=== PATIENT | male | born 1955 | race Caucasian/White ===

== ENCOUNTER 2016-03-25 17:36 | Emergency (ER) | payer BC ==
[~2016-03-25] VITALS: Ht 172.7 cm; Wt 76.0 kg
[~2016-03-25 17:36] MED LIST: AMLO5 PO; ASPI325T PO; HYDR-3583 PO; LIPI40TA PO; MULT1TAB84 PO; PRIN20TA2 PO; TOPR100T PO
[2016-03-25 17:53] VITALS: BP 156/113; PULSE 82; RESP 16; TEMP 98; O2SAT 98
--- NOTE | 2016-03-25 18:34 | PD ---
HPI Chief Complaint: GI Complaint Time Seen by Provider: 18:18 Travel History International Travel<30 days: No Contact w/Intl Traveler<30days: No Traveled to known affect area: No History of Present Illness HPI This is a 60 year old male who has a history of chronic opiate use due to back pain who presents with a sensation of needing to defecate with severe pain, unable to defecate. He says it is intermittent, comes and goes in waves, and is severe at its maximum. Pt. reports it is doubling him over in pain. He finds walking around makes it better and he has been trying to take oxycodone for it but that is not helping. Pt. had a bowel movement at 3 AM and around 5 AM his symptoms started. Pt. does have a history of bowel resection due to diverticulitis. PFSH Past Medical History Hx Anticoagulant Therapy: Yes (asa 325mg) Arthritis: No Asthma: No Autoimmune Disease: No Blood Disorders: No Anxiety: No Depression: No Heart Rhythm Problems: No Cancer: No Cardiac Catheterization: Yes Cardiovascular Problems: Yes (htn on meds, [place] -5 vessel bypass) High Cholesterol: Yes Chemotherapy: No Chest Pain: No Congestive Heart Failure: No COPD: No Cerebrovascular Accident: No Coronary Artery Disease: Yes Diabetes: No Diminished Hearing: No Diverticulitis: Yes Endocrine: No Gastrointestinal Disorders: Yes GERD: Yes (HX OF) Glaucoma: No Genitourinary: Yes Headaches: No Hepatitis: No Hiatal Hernia: Yes (HX OF) Hypertension: Yes Kidney Stones: Yes Musculoskeletal: No Neurologic: No Psychiatric: No Reproductive: No Respiratory: No Myocardial Infarction: Yes Radiation Therapy: No Renal Failure: No Seizures: No Sickle Cell Disease: No Sleep Apnea: No Thyroid Disease: No Ulcer: No Past Surgical History Abdominal Surgery: Yes (BOWEL RESECTION) AICD: No Cardiac Surgery: Yes (QUAD BYPASS) Coronary Artery Bypass Graft: Yes Ear Surgery: No Endocrine Surgery: No Eye Surgery: No Genitourinary Surgery: Yes (LITHOTRIPSY) Gynecologic Surgery: No Neurologic Surgery: No Oral Surgery: No Pacemaker: No Thoracic Surgery: No Other Surgery: Yes (BYPASS DECEMBER 2003) Social History Alcohol Use: Yes (3-4 DRINKS DAILY) Tobacco Use: No Substance Use: No Allergies-Medications (Allergen,Severity, Reaction): Coded Allergies: Sulfa (Verified Allergy, Severe, 03/25/16) Reported Meds & Prescriptions Reported Meds & Active Scripts Active Reported Hydrocodone-Acetaminophen 10-325 mg Tab 1 Tab PO Q4H PRN Norvasc (Amlodipine Besylate) 5 Mg Tab 5 Mg PO DAILY Aspirin 325 Mg Tab 325 Mg PO DAILY Lipitor (Atorvastatin Calcium) 40 Mg Tab 80 Mg PO HS Prinivil (Lisinopril) 20 Mg Tab 20 Mg PO HS PRN Toprol XL (Metoprolol Succinate) 100 Mg Tab 100 Mg PO DAILY Multivitamin Adults (Multiple Vitamins W/ Minerals) 1 Tab 1 Tab PO DAILY Review of Systems Except as stated in HPI: all other systems reviewed are Neg Physical Exam Narrative GENERAL:Well appearing, no acute distress SKIN: Warm and dry. HEAD: Atraumatic. Normocephalic. EYES: Pupils equal and round. No injection or drainage. ENT: Moist mucous membranes NECK: Trachea midline. CARDIOVASCULAR: Regular rate and rhythm. No murmur appreciated. RESPIRATORY: Clear to auscultation. Breath sounds equal bilaterally. GASTROINTESTINAL: Abdomen soft, tender to palpation in the lower abdomen with no rebound or guarding. No tenderness to palpation on rectal exam, no prostate tenderness, no obvious abscess or impaction MUSCULOSKELETAL: No obvious deformities. NEUROLOGICAL: Awake and alert. No obvious cranial nerve deficits. Moving all extremities. PSYCHIATRIC: Appropriate mood and affect; insight and judgment normal. Data Data Last Documented VS Vital Signs Date Time Temp Pulse Resp B/P Pulse Ox O2 Delivery O2 Flow Rate FiO2 03/25/16 18:21 18 03/25/16 17:53 98.0 82 156/113 98 Orders Complete Blood Count With Diff (03/25/16 18:41) Comprehensive Metabolic Panel (03/25/16 18:41) Urinalysis - C+S If Indicated (03/25/16 18:41) Ct Abd/Pel W Iv Contrast(Rout) (03/25/16 18:41) Iv Access Insert/Monitor (03/25/16 18:41) Ecg Monitoring (03/25/16 18:41) Oximetry (03/25/16 18:41) Sodium Chloride 0.9% Flush (Ns Flush) (03/25/16 18:45) MDM Medical Decision Making Medical Screen Exam Complete: Yes Emergency Medical Condition: Yes Interpretation(s) Afebrile, no tachycardia, hypertension Differential Diagnosis Fecal impaction, perirectal abscess, prostatitis, colitis, diverticulitis Narrative Course This is a 60-year-old male who presents to the emergency department with lower abdominal discomfort and rectal pain. Patient has a long history of chronic opiate use. Rectal exam was benign with no evidence of fecal impaction or abscess and no sign of prostatitis. He was placed on a monitor and an IV was established. Labs will be obtained and a CT abdomen and pelvis will be obtained to rule out obstruction. Case was signed out to Dr. Luciano. Agustina Shultz MD Mar 25, 2016 18:34
[2016-03-25] MEDS ORDERED: SODIUM CHLORIDE 0.9% FLUSH 5 ML FLUSH IVF PRN (18:45)
[2016-03-25 19:04] LABS: BASOPHIL # 0.3 TH/MM3 (0-0.2); BASOPHIL % 3.2 % (0.0-2.0); BLOOD, URINE SMALL (NEG); EOSINOPHIL % 0.1 % (0.0-4.0); GLUCOSE,URINE NEG (NEG); HEMATOCRIT 44.2 % (39.0-51.0); HEMO FLAGS DIFF FINAL; KETONE, URINE TRACE mg/dL (NEG); LYMPH % 7.7 % (9.0-44.0); LYMPHOCYTE # 0.8 TH/MM3 (1.0-4.8); MEAN CELL VOLUME 100.6 FL (80.0-100.0); MEAN CORPUSCULAR HEMOGLOBIN 34.7 PG (27.0-34.0); MEAN CORPUSCULAR HGB CONC 34.5 % (32.0-36.0); MONO % 17.9 % (0.0-8.0); NEUT % 71.1 % (16.0-70.0); NITRITE,URINE NEG (NEG); PLATELET COUNT 258 TH/MM3 (150-450); RED BLOOD COUNT 4.39 MIL/MM3 (4.50-5.90); RED CELL DISTRIBUTION WIDTH 12.3 % (11.6-17.2); WHITE BLOOD COUNT 9.8 TH/MM3 (4.0-11.0)
[2016-03-25 19:14] LABS: METHOD OF COLLECTION VOIDED; URINE COLOR YELLOW (YELLW/STRAW)
[2016-03-25 19:15] LABS: COMMENT (UR) CULT NOT INDICATED; CULTURE IF INDICATED CULT NOT INDICATED; MUCUS URINE FEW /lpf (OCC); RBC, URINE 0-3 /hpf (0-3); SQUAMOUS EPITHELIAL CELL URINE 0-2 /hpf (0-5)
[2016-03-25 19:16] LABS: CHLORIDE 101 MEQ/L (98-107); POTASSIUM 3.6 MEQ/L (3.5-5.1); SODIUM (NA) 139 MEQ/L (136-145)
[2016-03-25 19:19] LABS: ANION GAP 8 MEQ/L (5-15); BICARBONATE 29.6 MEQ/L (21.0-32.0)
[2016-03-25 19:20] LABS: BLOOD UREA NITROGEN 18 MG/DL (7-18)
[2016-03-25 19:22] LABS: ALT (GPT) 36 U/L (12-78); AST (GOT) 29 U/L (15-37)
[2016-03-25 19:23] LABS: GLOMERULAR FILTRATION RATE 62 ML/MIN (>89)
[2016-03-25 19:24] LABS: TOTAL BILIRUBIN ADULT 0.7 MG/DL (0.2-1.0)
[2016-03-25 19:25] LABS: ALKALINE PHOSPHATASE 56 U/L (45-117)
[2016-03-25] MEDS ORDERED: IOHEXOL 350 MG/ML 10 ML VIAL (for RAD DIAG) IV ONE (20:16)
--- NOTE | 2016-03-25 20:32 | RADHPO ---
EXAM DATE/TIME: 03/25/2016 20:09 [facility] COMPARISON: No previous studies available for comparison. INDICATIONS : Rectal pain with sensation of needing bowel movement. IV CONTRAST: 100 cc Omnipaque 350 (iohexol) IV ORAL CONTRAST: No oral contrast ingested. RADIATION DOSE: 11.83 CTDIvol (mGy) MEDICAL HISTORY : Gastroesophageal reflux disease. Diverticulitis. Hernia, hiatal.Hypertention. Renal calculi. SURGICAL HISTORY : Bowel resection. ENCOUNTER: Initial ACUITY: 1 day PAIN SCALE: 8/10 LOCATION: rectal TECHNIQUE: Volumetric scanning of the abdomen and pelvis was performed. Using automated exposure control and ad justment of the mA and/or kV according to patient size, radiation dose was kept as low as reasonably achievable to obtain optimal diagnostic quality images. FINDINGS: LOWER LUNGS: The visualized lower lungs are clear. LIVER: Decreased attenuation without lesion. There is no dilation of the biliary tree. Small calcified gall stones. SPLEEN: Normal size without lesion. PANCREAS: Within normal limits. KIDNEYS: Normal in size and shape. There is no mass or hydronephrosis. Bilateral nonobstructing renal calculi measuring 2-5 mm in size. Bilateral renal cysts. ADRENAL GLANDS: Within normal limits. VASCULAR: There is no aortic aneurysm. BOWEL/MESENTERY: Diverticulosis without diverticulitis. Copious stool in the rectosigmoid colon. There is no free int raperitoneal air or fluid. ABDOMINAL WALL: Within normal limits. RETROPERITONEUM: There is no lymphadenopathy. BLADDER: No wall thickening or mass. REPRODUCTIVE: Within normal limits. INGUINAL: There is no lymphadenopathy or hernia. MUSCULOSKELETAL: Within normal limits for patient age. CONCLUSION: 1. Copious stool in the rectosigmoid colon. 2. Diverticulosis without diverticulitis 3. Bilateral nonobstructing renal calculi and bilateral renal cysts. 4. Hepatic steatosis. Leighton Kapoor MD on March 25, 2016 at 20:27 Board Certified Radiologist. This report was verified electronically.
[2016-03-25 20:33] VITALS: BP 168/87; PULSE 83; RESP 20; O2SAT 99
[2016-03-25 20:36] VITALS: BP 168/87; PULSE 83; RESP 20; O2SAT 99
--- NOTE | 2016-03-25 22:19 | PD ---
Physical Exam Time Seen by Provider: 22:[address] Shultz with this patient with me to check the CT results of the abdomen/ pelvis and make a disposition. Data Data Last Documented VS Vital Signs Date Time Temp Pulse Resp B/P Pulse Ox O2 Delivery O2 Flow Rate FiO2 03/25/16 20:36 83 20 168/87 99 03/25/16 17:53 98.0 Orders Complete Blood Count With Diff (03/25/16 18:41) Comprehensive Metabolic Panel (03/25/16 18:41) Urinalysis - C+S If Indicated (03/25/16 18:41) Ct Abd/Pel W Iv Contrast(Rout) (03/25/16 18:41) Iv Access Insert/Monitor (03/25/16 18:41) Ecg Monitoring (03/25/16 18:41) Oximetry (03/25/16 18:41) Sodium Chloride 0.9% Flush (Ns Flush) (03/25/16 18:45) Iohexol 350 Inj (Omnipaque 350 Inj) (03/25/16 20:16) Labs Laboratory Tests Test 03/25/16 18:50 White Blood Count 9.8 TH/MM3 Red Blood Count 4.39 MIL/MM3 Hemoglobin 15.2 GM/DL Hematocrit 44.2 % Mean Corpuscular Volume 100.6 FL Mean Corpuscular Hemoglobin 34.7 PG Mean Corpuscular Hemoglobin 34.5 % Concent Red Cell Distribution Width 12.3 % Platelet Count 258 TH/MM3 Mean Platelet Volume 6.9 FL Neutrophils (%) (Auto) 71.1 % Lymphocytes (%) (Auto) 7.7 % Monocytes (%) (Auto) 17.9 % Eosinophils (%) (Auto) 0.1 % Basophils (%) (Auto) 3.2 % Neutrophils # (Auto) 7.0 TH/MM3 Lymphocytes # (Auto) 0.8 TH/MM3 Monocytes # (Auto) 1.7 TH/MM3 Eosinophils # (Auto) 0.0 TH/MM3 Basophils # (Auto) 0.3 TH/MM3 CBC Comment DIFF FINAL Differential Comment Urine Collection Type VOIDED Urine Color YELLOW Urine Turbidity CLEAR Urine pH 6.0 Urine Specific [place] 1.025 Urine Protein TRACE mg/dL Urine Glucose (UA) NEG mg/dL Urine Ketones TRACE mg/dL Urine Occult Blood SMALL Urine Nitrite NEG Urine Bilirubin NEG Urine Leukocyte Esterase NEG Urine RBC 0-3 /hpf Urine WBC 3-5 /hpf Urine Squamous Epithelial 0-2 /hpf Cells Urine Mucus FEW /lpf Microscopic Urinalysis Comment CULT NOT INDICATED Sodium Level 139 MEQ/L Potassium Level 3.6 MEQ/L Chloride Level 101 MEQ/L Carbon Dioxide Level 29.6 MEQ/L Anion Gap 8 MEQ/L Blood Urea Nitrogen 18 MG/DL Creatinine 1.20 MG/DL Estimat Glomerular Filtration 62 ML/MIN Rate Random Glucose 122 MG/DL Calcium Level 9.0 MG/DL Total Bilirubin 0.7 MG/DL Aspartate Amino Transf 29 U/L (AST/SGOT) Alanine Aminotransferase 36 U/L (ALT/SGPT) Alkaline Phosphatase 56 U/L Total Protein 6.8 GM/DL Albumin 3.4 GM/DL [facility] Medical Record Reviewed: Yes Supervised Visit with DARRELL: Yes Interpretation(s) The CT abdomen/pelvis shows copious stool in in the rectosigmoid colon. It also shows diverticulosis without diverticulitis. Also noted are bilateral nonobstructing renal calculi and bilateral renal cysts and hepatic steatosis. Differential Diagnosis Constipation, intractable pain from sciatica, fecal impaction, renal calculi Narrative Course The patient has opiate-induced constipation. He states it is more important that he get his pain medication, he specifically names Dilaudid, then it is to get rid of the constipation. He knows he has opiate-induced constipation but wants a shot of Dilaudid so he can go home and try and use a [id number] bowel prep agent. He is told about Amitiza and there are some other new medications for opiate-induced constipation. We tried to call Dr. Trevino but we cannot get him tonight. Diagnosis Primary Impression: Constipation due to pain medication Additional Impression: Left sciatic nerve pain Additional Instruction: Follow-up with Dr. Trevino tomorrow. There are some new medications indicated for opiate-induced constipation. Med/Other Pt SpecificInfo: No Change to Meds Disposition: DISCHARGE HOME Condition: Stable Anthony Luciano MD Mar 25, 2016 22:19
[2016-03-25] MEDS ORDERED: HYDROmorphone HCL PF 2 MG/ML VIAL IV PUSH ONE (22:30)
[2016-03-25 22:44] VITALS: BP 199/104; PULSE 80; RESP 18; O2SAT 97
[2016-03-25] MEDS ORDERED: hydrALAZINE HCL 20 MG/ML VIAL IV PUSH ONE (23:15)
[2016-03-25 23:33] VITALS: BP 160/87
== END 2016-03-26 01:37 | disposition home or self-care (01) ==
LOC: PHED 17:36
DX: K59.03 Drug induced constipation (principal); T40.2X5A Adverse effect of other opioids, initial encounter; M54.32 Sciatica, left side; K57.30 Diverticulosis of large intestine without perforation or abscess without bleeding; N20.0 Calculus of kidney; E78.00 Pure hypercholesterolemia, unspecified; I10 Essential (primary) hypertension; Z87.442 Personal history of urinary calculi; I25.2 Old myocardial infarction; Z95.1 Presence of aortocoronary bypass graft
CPT/HCPCS: 74177; 80053; 81001; 85025; 96374; 99284; J1170; Q9967

== ENCOUNTER 2016-09-09 05:54 | Observation (INO) | payer BC ==
[~2016-09-09] VITALS: Ht 172.7 cm; Wt 71.6 kg
[2016-09-09 06:03] VITALS: BP 165/94; PULSE 106; RESP 18; TEMP 97.9; O2SAT 97
[2016-09-09] MEDS ORDERED: ONDANSETRON ODT 4 MG TAB PO ONE (06:15)
[2016-09-09] MEDS ORDERED: METHYLNALTREXONE BROMIDE 12 MG/0.6 ML VIAL SQ ONE ×2 (06:15→12:45)
[2016-09-09] MEDS ORDERED: DICYCLOMINE HCL 10 MG CAP PO ONE (06:15)
[2016-09-09] MEDS ORDERED: MAGNESIUM CITRATE SOLN 300 ML BTL PO ONE (06:15)
[2016-09-09] MEDS ORDERED: MAGNSOL2 PO (06:24)
[2016-09-09] MEDS ORDERED: MIRA3350 PO (06:24)
--- NOTE | 2016-09-09 06:24 | PD ---
HPI Chief Complaint: GI Complaint Time Seen by Provider: 06:08 Travel History International Travel<30 days: No Contact w/Intl Traveler<30days: No History of Present Illness HPI This 61 year-old woman who presents emergency room complaining of constipation. He believes is related to his opioid use. He is on chronic opiates for his back and just had rotator cuff surgery and is been taking more opiates for his pain. Is not a bowel movement the past week and is left-sided abdominal pain. He has had diverticulitis in the past and a colon resection in the past. He states he's had trouble with constipation in the past. Usually isn't this bad. He tried some at home, and also some magnesium citrate which hasn't really helped. History Past Medical History Narrative Medical Chronic back pain Hypertension CAD, history of CABG History diverticulitis with colon resection in the past Hyperlipidemia Social History Alcohol Use: Yes (3-4 DRINKS DAILY) Tobacco Use: No Allergies-Medications (Allergen,Severity, Reaction): Coded Allergies: Sulfa (Verified Allergy, Severe, 03/25/16) Reported Meds & Prescriptions Reported Meds & Active Scripts Active Reported Hydrocodone-Acetaminophen 10-325 mg Tab 1 Tab PO Q4H PRN Norvasc (Amlodipine Besylate) 5 Mg Tab 5 Mg PO DAILY Aspirin 325 Mg Tab 325 Mg PO DAILY Lipitor (Atorvastatin Calcium) 40 Mg Tab 80 Mg PO HS Prinivil (Lisinopril) 20 Mg Tab 20 Mg PO HS PRN Toprol XL (Metoprolol Succinate) 100 Mg Tab 100 Mg PO DAILY Multivitamin Adults (Multiple Vitamins W/ Minerals) 1 Tab 1 Tab PO DAILY Review of Systems Except as stated in HPI: all other systems reviewed are Neg Physical Exam Narrative GENERAL: Emmy well-appearing 61 year-old woman, appears a little bit uncomfortable but nontoxic. SKIN: Focused skin assessment warm/dry. HEAD: Atraumatic. Normocephalic. EYES: Pupils equal and round. No scleral icterus. No injection or drainage. ENT: No nasal bleeding or discharge. Mucous membranes pink and moist. NECK: Trachea midline. No JVD. CARDIOVASCULAR: Regular rate and rhythm. No murmur appreciated. RESPIRATORY: No accessory muscle use. Clear to auscultation. Breath sounds equal bilaterally. GASTROINTESTINAL: Abdomen soft, full, some left-sided abdominal tenderness, mild to moderate, no rebound or guarding. RECTAL: Soft stool in the rectal vault. MUSCULOSKELETAL: No obvious deformities. No clubbing. No cyanosis. No edema. PSYCHIATRIC: Appropriate mood and affect; insight and judgment normal. Data Data Last Documented VS Vital Signs Date Time Temp Pulse Resp B/P Pulse Ox O2 Delivery O2 Flow Rate FiO2 09/09/16 06:03 97.9 106 18 165/94 97 MDM Medical Decision Making Medical Screen Exam Complete: Yes Emergency Medical Condition: Yes Differential Diagnosis Constipation, obstruction, adverse effect of opiates, other Narrative Course Medical decision-making 61-year-old man with increased constipation after increasing his opiate use. He looks well. He does have some left-sided tenderness. He looks overall well. He tried to magnesium citrate without much relief. Given his history of bowel resection, we'll check a screening flat and upright abdomen to make sure is no evidence of obstruction. We'll recommend mag citrate, Bentyl for pain, Zofran and Reglan for vomiting. Diagnosis Primary Impression: Constipation due to pain medication Additional Instructions: If no substantial bowel movement in the next 24 hours, take a second dose of magnesium citrate. Take MiraLAX daily to ensure regular bowel movement. Follow up with your primary doctor in the next one to 2 days. Med/Other Pt SpecificInfo: Prescription(s) given Scripts Polyethylene Glycol 3350 Powder (Miralax Powder)17 Gm Powd17 Gm PO DAILY #1 CAN Ref 0 Mix and dissolve one measuring cap-ful (17 grams) in water or juice. Prov:Clint Ma MD 09/09/16 Magnesium Citrate Liq 300 Ml Irx005 Ml PO DIRECTED #1 BOTTLE Prov:Clint Ma MD 09/09/16 Disposition: 01 DISCHARGE HOME Condition: Stable Clint Ma MD Sep 09, 2016 06:24
[2016-09-09] MEDS ORDERED: METOCLOPRAMIDE HCL 10 MG TAB PO ONE ×2 (06:30)
[2016-09-09] MEDS ORDERED: SENN8.6T8 PO (06:33)
[2016-09-09] MEDS ORDERED: MELAPOW2 PO (06:33)
[2016-09-09] MEDS ORDERED: ONDA1TAB17 PO (06:33)
[2016-09-09 07:15] VITALS: BP 142/83; PULSE 86; RESP 18; O2SAT 96
--- NOTE | 2016-09-09 07:32 | RADRPT ---
EXAM DATE/TIME: 09/09/2016 06:31 [facility] COMPARISON: CT ABDOMEN & PELVIS W CONTRAST, March 25, 2016, 20:09. INDICATIONS : Abdominal pain. MEDICAL HISTORY : None. SURGICAL HISTORY : Colon resection. ENCOUNTER: Initial ACUITY: 1 week PAIN SCORE: 7/10 LOCATION: all quadrants. FINDINGS: Supine and upright views of the abdomen demonstrate mild gaseous distention of the small bowel withou t significantly dilated loops and no transition point identified. Upright image demonstrates multiple air-fluid levels in the small bowel and colon. No free air is visualized. There is no organomegaly. Densities overlying the kidneys may represent renal stones. There are degenerative changes of the lum bar spine. Patient is post median sternotomy. CONCLUSION: 1. Multiple air-fluid levels throughout the small bowel and colon with mild gaseous distention of the small bowel. This is an abnormal finding but the pattern is not suggestive of obstruction. This coul d represent ileus. Suggest followup to confirm resolution. 2. Multiple densities overlie the kidneys bilaterally and likely represent renal stones. Kishore Arboleda MD on September 09, 2016 at 7:28 Board Certified Radiologist. This report was verified electronically.
--- NOTE | 2016-09-09 08:11 | PD ---
Physical Exam Date Seen by Provider: Sep 09, 2016 Time Seen by Provider: 07:00 Narrative Patient initially seen by Dr. Ma, please see previous note for further details. Awaiting eye medication and x-ray. Initially suspected to have opiate related constipation. However, x-ray returns showing ileus and patient is tender on palpation of the lower abdomen especially in the left lower quadrant. With patient's previous history of diverticulitis, further workup was initiated. Laboratory Tests Test 09/09/16 09/09/16 08:19 08:35 Red Blood Count 3.92 MIL/MM3 (4.50-5.90) Mean Corpuscular Volume 101.7 FL (80.0-100.0) Mean Corpuscular Hemoglobin 35.3 PG (27.0-34.0) Mean Platelet Volume 6.8 FL (7.0-11.0) Neutrophils (%) (Auto) 76.4 % (16.0-70.0) Lymphocytes (%) (Auto) 7.2 % (9.0-44.0) Monocytes (%) (Auto) 15.6 % (0.0-8.0) Lymphocytes # (Auto) 0.6 TH/MM3 (1.0-4.8) Monocytes # (Auto) 1.4 TH/MM3 (0-0.9) Potassium Level 3.4 MEQ/L (3.5-5.1) Estimat Glomerular Filtration 80 ML/MIN (>89) Rate Random Glucose 119 MG/DL (74-106) Calcium Level 8.3 MG/DL (8.5-10.1) Aspartate Amino Transf 39 U/L (15-37) (AST/SGOT) Urine Occult Blood TRACE (NEG) Last 24 hours Impressions Abdomen/Pelvis CT 09/09/16 0808 Signed Impressions: Service Date/Time: Friday, September 09, 2016 08:57 - CONCLUSION: 1. Colitis involving the distal descending colon and proximal sigmoid colon with likely functional mild partial colonic obstruction. There are scattered diverticula in this region. Moderate stool in the sigmoid colon is likely chronic. Differential considerations include developing infectious colitis versus diverticulitis. No evidence for perforation or abscess formation at this time. 2. Redemonstration of bilateral small 2-5 mm calyceal calcified renal calculi without evidence for obstructive uropathy. 3. Additional findings include redemonstration of bilateral renal cysts and mild hepatic steatosis. Cy Wheat MD Abdomen X-Ray 09/09/16 0000 Signed Impressions: Service Date/Time: Friday, September 09, 2016 06:31 - CONCLUSION: 1. Multiple air-fluid levels throughout the small bowel and colon with mild gaseous distention of the small bowel. This is an abnormal finding but the pattern is not suggestive of obstruction. This could represent ileus. Suggest followup to confirm resolution. 2. Multiple densities overlie the kidneys bilaterally and likely represent renal stones. Kishore Arobleda MD CAT scans concerning for partial small bowel obstruction and diverticulitis. Considering that the patient is having now increased pain and signs of obstruction, my plan would be to admit him as an observation. Case was discussed with Dr. Godoy for admission. Data Data Last Documented VS Vital Signs Date Time Temp Pulse Resp B/P Pulse Ox O2 Delivery O2 Flow Rate FiO2 09/09/16 08:21 98 Room Air 09/09/16 07:15 86 18 142/83 09/09/16 06:03 97.9 Orders Magnesium Citrate Liq (Citroma Liq) (09/09/16 06:15) Ondansetron Odt (Zofran Odt) (09/09/16 06:15) Dicyclomine (Bentyl) (09/09/16 06:15) Methylnaltrexone Inj (Relistor Inj) (09/09/16 06:15) Abdomen, Flat & Upright (09/09/16 ) Metoclopramide (Reglan) (09/09/16 06:30) Metoclopramide (Reglan) (09/09/16 06:30) Complete Blood Count With Diff (09/09/16 08:08) Comprehensive Metabolic Panel (09/09/16 08:08) Urinalysis - C+S If Indicated (09/09/16 08:08) Ct Abd/Pel W Iv Contrast(Rout) (09/09/16 08:08) Iv Access Insert/Monitor (09/09/16 08:08) Ecg Monitoring (09/09/16 08:08) Oximetry (09/09/16 08:08) Sodium Chloride 0.9% Flush (Ns Flush) (09/09/16 08:15) Iohexol 350 Inj (Omnipaque 350 Inj) (09/09/16 09:14) Labs Laboratory Tests Test 09/09/16 09/09/16 08:19 08:35 White Blood Count 8.9 TH/MM3 Red Blood Count 3.92 MIL/MM3 Hemoglobin 13.8 GM/DL Hematocrit 39.8 % Mean Corpuscular Volume 101.7 FL Mean Corpuscular Hemoglobin 35.3 PG Mean Corpuscular Hemoglobin 34.7 % Concent Red Cell Distribution Width 14.1 % Platelet Count 287 TH/MM3 Mean Platelet Volume 6.8 FL Neutrophils (%) (Auto) 76.4 % Lymphocytes (%) (Auto) 7.2 % Monocytes (%) (Auto) 15.6 % Eosinophils (%) (Auto) 0.2 % Basophils (%) (Auto) 0.6 % Neutrophils # (Auto) 6.8 TH/MM3 Lymphocytes # (Auto) 0.6 TH/MM3 Monocytes # (Auto) 1.4 TH/MM3 Eosinophils # (Auto) 0.0 TH/MM3 Basophils # (Auto) 0.1 TH/MM3 CBC Comment DIFF FINAL Differential Comment Sodium Level 138 MEQ/L Potassium Level 3.4 MEQ/L Chloride Level 100 MEQ/L Carbon Dioxide Level 30.5 MEQ/L Anion Gap 8 MEQ/L Blood Urea Nitrogen 8 MG/DL Creatinine 0.95 MG/DL Estimat Glomerular Filtration 80 ML/MIN Rate Random Glucose 119 MG/DL Calcium Level 8.3 MG/DL Total Bilirubin 1.0 MG/DL Aspartate Amino Transf 39 U/L (AST/SGOT) Alanine Aminotransferase 30 U/L (ALT/SGPT) Alkaline Phosphatase 86 U/L Total Protein 6.8 GM/DL Albumin 3.6 GM/DL Urine Collection Type VOIDED Urine Color YELLOW Urine Turbidity CLEAR Urine pH 6.0 Urine Specific [place] 1.017 Urine Protein TRACE mg/dL Urine Glucose (UA) NEG mg/dL Urine Ketones NEG mg/dL Urine Occult Blood TRACE Urine Nitrite NEG Urine Bilirubin NEG Urine Leukocyte Esterase NEG Urine WBC 0-2 /hpf Urine Squamous Epithelial 0-2 /hpf Cells Microscopic Urinalysis Comment CULT NOT INDICATED MDM Medical Record Reviewed: Yes Supervised Visit with DARRELL: No Diagnosis Primary Impression: Constipation due to pain medication Additional Impressions: Abdominal pain Ileus Diverticulitis Admitting Information Admitting Physician Requests: Admit Referrals: Primary Care Physician call for appointment Patient Instructions: General Instructions, Constipation (ED) Departure Forms: Tests/Procedures Additional Instruction: If no substantial bowel movement in the next 24 hours, take a second dose of magnesium citrate. Take MiraLAX daily to ensure regular bowel movement. Follow up with your primary doctor in the next one to 2 days. Scripts Magnesium Citrate Liq 300 Ml [id number] Ml PO DIRECTED #1 BOTTLE Prov:Clint Ma MD 09/09/16 Keturah Yeh MD Sep 09, 2016 08:10
[2016-09-09] MEDS ORDERED: SODIUM CHLORIDE 0.9% FLUSH 10 ML FLUSH IV FLUSH PRN (08:15)
[2016-09-09 08:21] VITALS: O2SAT 98
[2016-09-09 08:28] LABS: AUTOMATED NEUTROPHIL # 6.8 TH/MM3 (1.8-7.7); BASOPHIL # 0.1 TH/MM3 (0-0.2); BASOPHIL % 0.6 % (0.0-2.0); EOSINOPHIL % 0.2 % (0.0-4.0); HEMATOCRIT 39.8 % (39.0-51.0); LYMPH % 7.2 % (9.0-44.0); LYMPHOCYTE # 0.6 TH/MM3 (1.0-4.8); MEAN CELL VOLUME 101.7 FL (80.0-100.0); MEAN CORPUSCULAR HEMOGLOBIN 35.3 PG (27.0-34.0); MEAN CORPUSCULAR HGB CONC 34.7 % (32.0-36.0); MONO % 15.6 % (0.0-8.0); NEUT % 76.4 % (16.0-70.0); PLATELET COUNT 287 TH/MM3 (150-450); RED BLOOD COUNT 3.92 MIL/MM3 (4.50-5.90); RED CELL DISTRIBUTION WIDTH 14.1 % (11.6-17.2); WHITE BLOOD COUNT 8.9 TH/MM3 (4.0-11.0)
[2016-09-09 08:41] LABS: HEMO FLAGS DIFF FINAL
[2016-09-09 08:46] LABS: CHLORIDE 100 MEQ/L (98-107); POTASSIUM 3.4 MEQ/L (3.5-5.1); SODIUM (NA) 138 MEQ/L (136-145)
[2016-09-09 08:47] LABS: BLOOD, URINE TRACE (NEG); GLUCOSE,URINE NEG (NEG); KETONE, URINE NEG (NEG); NITRITE,URINE NEG (NEG)
[2016-09-09 08:50] LABS: ANION GAP 8 MEQ/L (5-15); BICARBONATE 30.5 MEQ/L (21.0-32.0); BLOOD UREA NITROGEN 8 MG/DL (7-18)
[2016-09-09 08:53] LABS: ALT (GPT) 30 U/L (12-78); AST (GOT) 39 U/L (15-37); GLOMERULAR FILTRATION RATE 80 ML/MIN (>89)
[2016-09-09 08:56] LABS: ALKALINE PHOSPHATASE 86 U/L (45-117)
[2016-09-09 09:00] LABS: METHOD OF COLLECTION VOIDED; URINE COLOR YELLOW (YELLW/STRAW); WBC, URINE 0-2 /hpf (0-5)
[2016-09-09 09:01] LABS: COMMENT (UR) CULT NOT INDICATED; CULTURE IF INDICATED CULT NOT INDICATED; SQUAMOUS EPITHELIAL CELL URINE 0-2 /hpf (0-5)
[2016-09-09] MEDS ORDERED: IOHEXOL 350 MG/ML 10 ML VIAL (for RAD DIAG) IV ONE (09:14)
--- NOTE | 2016-09-09 09:54 | RADRPT ---
EXAM DATE/TIME: 09/09/2016 08:57 [place] COMPARISON: CT ABDOMEN & PELVIS W CONTRAST, March 25, 2016, 20:09. INDICATIONS : Left abdominal pain. Constipation x 1 week. IV CONTRAST: 85 cc Omnipaque 350 (iohexol) IV ORAL CONTRAST: No oral contrast ingested. RADIATION DOSE: 11.75 CTDIvol (mGy) MEDICAL HISTORY : Gastroesophageal reflux disease. Renal calculi. Myocardial infarction.Hypertension. Diverticulitis. SURGICAL HISTORY : CABG Colon resection. ENCOUNTER: Initial ACUITY: 1 week PAIN SCALE: 9/10 LOCATION: Left lower quadrant TECHNIQUE: Volumetric scanning of the abdomen and pelvis was performed. Using automated exposure control and ad justment of the mA and/or kV according to patient size, radiation dose was kept as low as reasonably achievable to obtain optimal diagnostic quality images. DICOM format image data is available electro nically for review and comparison. FINDINGS: LOWER LUNGS: Minimal bibasilar atelectasis. LIVER: Minimally diffusely decreased hepatic density without intrahepatic ductal dilatation or focal mass. G allbladder appears unremarkable by CT. SPLEEN: Normal size without lesion. PANCREAS: Within normal limits. KIDNEYS: Somewhat lobulated contour of the kidneys bilaterally which may reflect scarring. Bilateral small 2-5 mm calyceal calcified renal calculi are similar to prior examination. No hydronephrosis or hydrouret er. No ureteral calcified calculi. Small bilateral renal cysts similar to prior exam. ADRENAL GLANDS: Within normal limits. VASCULAR: Moderate vascular calcifications of the distal abdominal aorta and proximal iliac arteries. BOWEL/MESENTERY: Is mildly diffusely distended and fluid-filled extending to the junction of the descending colon and sigmoid colon. There is a large amount of stool in this portion of the colon with room mild bowel wal l thickening and slight pericolonic stranding and possibility selected. There are multiple colonic di verticula in this region. There is no free air or pneumatosis. Rectum is decompressed compared to the mid to distal sigmoid colon. Small bowel are normal in caliber. ABDOMINAL WALL: Within normal limits. RETROPERITONEUM: There is no lymphadenopathy. BLADDER: No wall thickening or mass. REPRODUCTIVE: Within normal limits. INGUINAL: There is no lymphadenopathy or hernia. MUSCULOSKELETAL: Within normal limits for patient age. CONCLUSION: 1. Colitis involving the distal descending colon and proximal sigmoid colon with likely functional mi ld partial colonic obstruction. There are scattered diverticula in this region. Moderate stool in the sigmoid colon is likely chronic. Differential considerations include developing infectious colitis v ersus diverticulitis. No evidence for perforation or abscess formation at this time. 2. Redemonstration of bilateral small 2-5 mm calyceal calcified renal calculi without evidence for ob structive uropathy. 3. Additional findings include redemonstration of bilateral renal cysts and mild hepatic steatosis. Cy Wheat MD on September 09, 2016 at 9:40 Board Certified Radiologist. This report was verified electronically.
[2016-09-09] MEDS ORDERED: ENALAPRILAT 1.25 MG/ML VIAL IV PUSH PRN (10:45)
[2016-09-09] MEDS ORDERED: ONDANSETRON HCL 4 MG/2 ML VIAL IV PUSH PRN (10:45)
--- NOTE | 2016-09-09 10:50 | HHI.HP ---
[facility] Service [facility] Primary Care Physician Benja Milton MD Admission Diagnosis ileus/diverticulitis Diagnoses: (1) Diverticulitis Diagnosis: Principal (2) Ileus Diagnosis: Principal Chief Complaint: abdominal pain Travel History International Travel<30 Days: No Contact w/Intl Traveler <30 Da: No Traveled to Known Affected Are: No History of Present Illness patient is a 61 y/o male with history of diverticulitis who presented to ER with abdominal pain. he says that he hasn't had any bowel movement since last week. he then started to have abdominal pain. pain is localized to LLQ and moderate in intensity. pain is colicky in nature and associated with some nausea and vomiting. no report of fever or chills. he says that he's taking opiates for his chronic back pain. Review of Systems Constitutional: DENIES: Fever, Weight loss, Chills, Night Sweats Eyes: DENIES: Blurred vision, Diplopia, Vision loss, Double Vision Ears, nose, mouth, throat: DENIES: Tinnitus, Vertigo, Throat pain, Epistaxis Respiratory: DENIES: Apneas, Cough, Snoring, Wheezing, Hemoptysis, Sputum production, Shortness of breath Cardiovascular: DENIES: Chest pain, Palpitations, Syncope, Dyspnea on Exertion , PND, Lower Extremity Edema, Orthopnea, Claudication Gastrointestinal: COMPLAINS OF: Abdominal pain, Constipation, Nausea, DENIES: Black stools, Bloody stools, Diarrhea, Vomiting, Difficulty Swallowing, Anorexia Genitourinary: DENIES: Urinary frequency, Urgency, Hematuria, Dysuria Musculoskeletal: DENIES: Joint pain, Muscle aches, Stiffness, Joint Swelling Integumentary: DENIES: Rash Neurologic: DENIES: Abnormal gait, Headache, Localized weakness, Paresthesias, Seizures, Speech Problems, Tremor, Poor Balance Psychiatric: DENIES: Anxiety, Confusion, Mood changes, Depression, Hallucinations, Agitation, Suicidal Ideation, Homicidal Ideation, Delusions Past Family Social History Past Medical History diverticulitis hypertension CAD chronic back pain Past Surgical History CABG back surgery colon resection Reported Medications Hydrocodone-Acetaminophen 10-325 mg Tab 1 Tab PO Q4H PRN Norvasc (Amlodipine Besylate) 5 Mg Tab 5 Mg PO DAILY Aspirin 325 Mg Tab 325 Mg PO DAILY Lipitor (Atorvastatin Calcium) 40 Mg Tab 80 Mg PO HS Prinivil (Lisinopril) 20 Mg Tab 20 Mg PO HS PRN Toprol XL (Metoprolol Succinate) 100 Mg Tab 100 Mg PO DAILY Multivitamin Adults (Multiple Vitamins W/ Minerals) 1 Tab 1 Tab PO DAILY Allergies: Coded Allergies: Sulfa (Verified Allergy, Severe, 09/09/16) Active Ordered Medications Current Medications Magnesium Citrate (Citroma Liq) 300 ml ONCE ONCE PO Last administered on 07:56; Start 09/09/16 at 06:15; Stop 09/09/16 at 06:17; Status DC Ondansetron HCl (Zofran Odt) 4 mg ONCE ONCE PO ; Start 09/09/16 at 06:15; Stop 09/09/16 at 06:20; Status DC Dicyclomine HCl (Bentyl) 20 mg ONCE ONCE PO Last administered on 09/09/16 06: 26; Start 09/09/16 at 06:15; Stop 09/09/16 at 06:17; Status DC Methylnaltrexone [place] (Relistor Inj) 12 mg ONCE ONCE SQ Last administered on 09/09/16 07:56; Start 09/09/16 at 06:15; Stop 09/09/16 at 06:17; Status DC Metoclopramide HCl (Reglan) 10 mg ONCE ONCE PO Last administered on 09/09/16 06:26; Start 09/09/16 at 06:30; Stop 09/09/16 at 06:31; Status DC Metoclopramide HCl (Reglan) 10 mg ONCE ONCE PO ; Start 09/09/16 at 06:30; Stop 09/09/16 at 06:31; Status DC Sodium Chloride (NS Flush) 2 ml UNSCH PRN IV FLUSH FLUSH AFTER USING IV ACCESS ; Start 09/09/16 at 08:15 Iohexol (Omnipaque 350 Inj) 85 ml STK-MED ONCE IV Last administered on 09:14; Start 09/09/16 at 09:14; Stop 09/09/16 at 09:15; Status DC Family History not relevant to this admission. Social History quit smoking years ago- drinks occasionally. Physical Exam Vital Signs Vital Signs Date Time Temp Pulse Resp B/P Pulse Ox O2 Delivery O2 Flow Rate FiO2 09/09/16 08:21 98 Room Air 09/09/16 07:15 86 18 142/83 96 Room Air 09/09/16 06:16 09/09/16 06:03 97.9 106 18 165/94 97 Physical Exam GENERAL: This is a well-nourished, well-developed patient, in no apparent distress. SKIN: No rashes, ecchymoses or lesions. Cool and dry. HEAD: Atraumatic. Normocephalic. No temporal or scalp tenderness. EYES: Pupils equal round and reactive. Extraocular motions intact. No scleral icterus. No injection or drainage. ENT: Nose without bleeding, purulent drainage or septal hematoma. Throat without erythema, tonsillar hypertrophy or exudate. Uvula midline. Airway patent. NECK: Trachea midline. No JVD or lymphadenopathy. Supple, nontender, no meningeal signs. CARDIOVASCULAR: Regular rate and rhythm without murmurs, gallops, or rubs. RESPIRATORY: Clear to auscultation. Breath sounds equal bilaterally. No wheezes , rales, or rhonchi. GASTROINTESTINAL: Abdomen soft, LLQ tenderness, nondistended. No hepato- splenomegaly, or palpable masses. No guarding. MUSCULOSKELETAL: Extremities without clubbing, cyanosis, or edema. No joint tenderness, effusion, or edema noted. No calf tenderness. Negative Homans sign bilaterally. NEUROLOGICAL: Awake and alert. Cranial nerves II through XII intact. Motor and sensory grossly within normal limits. Five out of 5 muscle strength in all muscle groups. Normal speech. Laboratory Laboratory Tests Test 09/09/16 09/09/16 08:19 08:35 White Blood Count 8.9 Red Blood Count 3.92 Hemoglobin 13.8 Hematocrit 39.8 Mean Corpuscular Volume 101.7 Mean Corpuscular Hemoglobin 35.3 Mean Corpuscular Hemoglobin 34.7 Concent Red Cell Distribution Width 14.1 Platelet Count 287 Mean Platelet Volume 6.8 Neutrophils (%) (Auto) 76.4 Lymphocytes (%) (Auto) 7.2 Monocytes (%) (Auto) 15.6 Eosinophils (%) (Auto) 0.2 Basophils (%) (Auto) 0.6 Neutrophils # (Auto) 6.8 Lymphocytes # (Auto) 0.6 Monocytes # (Auto) 1.4 Eosinophils # (Auto) 0.0 Basophils # (Auto) 0.1 CBC Comment DIFF FINAL Differential Comment Sodium Level 138 Potassium Level 3.4 Chloride Level 100 Carbon Dioxide Level 30.5 Anion Gap 8 Blood Urea Nitrogen 8 Creatinine 0.95 Estimat Glomerular Filtration 80 Rate Random Glucose 119 Calcium Level 8.3 Total Bilirubin 1.0 Aspartate Amino Transf 39 (AST/SGOT) Alanine Aminotransferase 30 (ALT/SGPT) Alkaline Phosphatase 86 Total Protein 6.8 Albumin 3.6 Urine Collection Type VOIDED Urine Color YELLOW Urine Turbidity CLEAR Urine pH 6.0 Urine Specific [place] 1.017 Urine Protein TRACE Urine Glucose (UA) NEG Urine Ketones NEG Urine Occult Blood TRACE Urine Nitrite NEG Urine Bilirubin NEG Urine Leukocyte Esterase NEG Urine WBC 0-2 Urine Squamous Epithelial 0-2 Cells Microscopic Urinalysis Comment CULT NOT INDICATED Result Diagram: 09/09/1681809/09/16 0819 Imaging Last Impressions Abdomen/Pelvis CT 09/09/16 0808 Signed Impressions: Service Date/Time: Friday, September 09, 2016 08:57 - CONCLUSION: 1. Colitis involving the distal descending colon and proximal sigmoid colon with likely functional mild partial colonic obstruction. There are scattered diverticula in this region. Moderate stool in the sigmoid colon is likely chronic. Differential considerations include developing infectious colitis versus diverticulitis. No evidence for perforation or abscess formation at this time. 2. Redemonstration of bilateral small 2-5 mm calyceal calcified renal calculi without evidence for obstructive uropathy. 3. Additional findings include redemonstration of bilateral renal cysts and mild hepatic steatosis. Cy Wheat MD Abdomen X-Ray 09/09/16 0000 Signed Impressions: Service Date/Time: Friday, September 09, 2016 06:31 - CONCLUSION: 1. Multiple air-fluid levels throughout the small bowel and colon with mild gaseous distention of the small bowel. This is an abnormal finding but the pattern is not suggestive of obstruction. This could represent ileus. Suggest followup to confirm resolution. 2. Multiple densities overlie the kidneys bilaterally and likely represent renal stones. Kishore Arboleda MD Assessment and Plan Assessment and Plan A/P - diverticulitis vs Colitis keep NPO and start IV fluid- start IV antibiotics and consult GI- antiemetics as needed. -CAD/hypertension; hold home meds for now- vasotec as needed -chronic back pain; continue with pain control -DVT prophylaxis with SCD's Discussed Condition With ER physician and the patient. Problem Qualifiers (1) Diverticulitis: Jaden Urrutia MD Sep 09, 2016 10:50
[2016-09-09] MEDS: LEVOFLOXACIN 500 MG PREMIX INJ 100 ML IV SCH (11:24)
[2016-09-09] MEDS: SODIUM CHLOR 0.9% 1000 ML INJ 1,000 ML IV SCH ×2 (11:24→19:36)
[2016-09-09] MEDS: HYDROmorphone HCL PF 1 MG/ML VIAL IV PUSH PRN ×4 (11:25→22:58)
[2016-09-09 13:04] VITALS: BP 167/106; PULSE 89; RESP 15; TEMP 99.2; O2SAT 99
--- NOTE | 2016-09-09 13:21 | MB ---
cc: [place] MIN M.D., GEORGE MD MINOUEI,VENECIA ZACARIAS DATE OF CONSULTATION: 09/09/2016 REASON FOR CONSULTATION Abdominal pain, constipation, possible diverticulitis. HISTORY OF PRESENT ILLNESS Mr. Alejandra is a 61-year-old gentleman with previous history of diverticulitis and kidney stones. He has had multiple episodes of both. He actually ended up having a partial colectomy for diverticulitis in 2004. Since then he has been having on and off issues with this. He states his last colonoscopy was 2 to 3 years ago which was reported as normal. The CT scan on admission here shows some stool in the left colon, possible diverticulitis versus colitis. He states he has not had a bowel movement for about a week. He states he had shoulder surgery done and was given some Dilaudid on top of his chronic opioid and this constipated him. He is passing some gas from below. REVIEW OF SYSTEMS Abdominal pain in the left lower quadrant. No bleeding, no diarrhea. The patient is constipated. PAST MEDICAL HISTORY 1. Diverticulitis. 2. Hypertension. 3. Coronary artery disease. 4. Chronic back pain. PAST SURGICAL HISTORY 1. CABG. 2. Back surgery. 3. Colon resection in 2004. MEDICATIONS On admission: 1. Hydrocodone. 2. Norvasc. 3. Aspirin. 4. Lipitor. 5. Prinivil. 6. Toprol. ALLERGIES SULFA DRUGS. PHYSICAL EXAMINATION GENERAL: Reveals a well-nourished man, in no apparent distress. VITAL SIGNS: Stable. HEAD/NECK: Anicteric sclerae. CHEST: Bilateral air entry with rales. ABDOMEN: Abdomen is soft with tenderness and guarding in the left lower quadrant. DETECTIVE CHIEF: Exam is nonfocal. RECTAL: Exam deferred at this time. LABORATORY DATA White cell count 8.9, hemoglobin 13.8. The rest of the labs are normal. IMAGING STUDIES A CT of the abdomen and pelvis reveals colitis versus diverticulitis in the left colon with suggestion of partial bowel obstruction. The pattern is not suggestive of obstruction. IMPRESSION Diverticulitis with colitis and constipation. RECOMMENDATIONS Clear liquid diet. Try Relistor 12 mg subcu x1, magnesium citrate by mouth and soapsuds enemas. Antibiotics as ordered. Depending on the patient's clinical course, may require surgical evaluation as well. No colonoscopy is planned at this time. Once the patient has improved clinically colonoscopy can be considered. Dr. Leggett will follow with you. Thank you for this referral. MD KANNAN Mejia/TLL /12:53 PM /1:07 PM
[2016-09-09] MEDS: metroNIDAZOLE 500 MG INJ 100 ML IV SCH ×2 (15:04→19:35)
[2016-09-09] MEDS ORDERED: HYDROmorphone HCL PF 1 MG/ML VIAL IV ONE (16:15)
[2016-09-09 16:53] VITALS: BP 159/83; PULSE 98; RESP 14; TEMP 98.1; O2SAT 99
[2016-09-09 20:00] VITALS: BP 168/93; PULSE 97; RESP 18; TEMP 99.8; O2SAT 95
[2016-09-10] VITALS: BP 166/93; PULSE 95; RESP 18; TEMP 98.7; O2SAT 96
[2016-09-10] MEDS: HYDROmorphone HCL PF 1 MG/ML VIAL IV PUSH PRN ×2 (03:14→07:33)
[2016-09-10] MEDS: metroNIDAZOLE 500 MG INJ 100 ML IV SCH ×3 (05:47→20:35)
[2016-09-10] MEDS: SODIUM CHLOR 0.9% 1000 ML INJ 1,000 ML IV SCH ×2 (05:47→18:02)
[2016-09-10 08:00] VITALS: BP 142/100; PULSE 89; RESP 18; TEMP 99.3; O2SAT 97
--- NOTE | 2016-09-10 08:03 | HHI.PR ---
Subjective Remarks in no acute distress. still with LLQ pain. had a BM last night. no fever. Objective Vitals Vital Signs Date Time Temp Pulse Resp B/P Pulse Ox O2 Delivery O2 Flow Rate FiO2 09/10/16 00:00 98.7 95 18 166/93 96 09/09/16 20:00 99.8 97 18 168/93 95 09/09/16 16:53 98.1 98 14 159/83 99 09/09/16 15:40 20 09/09/16 13:04 99.2 89 15 167/106 99 09/09/16 08:21 98 Room Air I/O 09/09/16 09/09/16 09/09/16 09/10/16 09/10/16 09/10/16 07:00 15:00 23:00 07:00 15:00 23:00 Intake Total 100 ml 1200 ml Output Total 0 ml Balance 100 ml 1200 ml Intake Oral 0 ml IV Total 100 ml 1200 ml Output Urine Total 0 ml # Voids 2 # Bowel Movements 1 Result Diagram: 09/09/16 0819 09/09/16 0819 Imaging Last Impressions Abdomen/Pelvis CT 09/09/16 0808 Signed Impressions: Service Date/Time: Friday, September 09, 2016 08:57 - CONCLUSION: 1. Colitis involving the distal descending colon and proximal sigmoid colon with likely functional mild partial colonic obstruction. There are scattered diverticula in this region. Moderate stool in the sigmoid colon is likely chronic. Differential considerations include developing infectious colitis versus diverticulitis. No evidence for perforation or abscess formation at this time. 2. Redemonstration of bilateral small 2-5 mm calyceal calcified renal calculi without evidence for obstructive uropathy. 3. Additional findings include redemonstration of bilateral renal cysts and mild hepatic steatosis. Cy Wheat MD Abdomen X-Ray 09/09/16 0000 Signed Impressions: Service Date/Time: Friday, September 09, 2016 06:31 - CONCLUSION: 1. Multiple air-fluid levels throughout the small bowel and colon with mild gaseous distention of the small bowel. This is an abnormal finding but the pattern is not suggestive of obstruction. This could represent ileus. Suggest followup to confirm resolution. 2. Multiple densities overlie the kidneys bilaterally and likely represent renal stones. Kishore Arboleda MD Objective Remarks GENERAL: This is a well-nourished, well-developed patient, in no apparent distress. CARDIOVASCULAR: Regular rate and regular rhythm without murmurs, gallops, or rubs. RESPIRATORY: Clear to auscultation. Breath sounds equal bilaterally. No wheezes , rales, or rhonchi. GASTROINTESTINAL: Abdomen soft, LLQ tenderness, nondistended. Normal, active bowel sounds MUSCULOSKELETAL: Extremities without clubbing, cyanosis, or edema. NEURO: Alert & Oriented x4 to person, place, time, situation. Moves all ext x4 Procedures none Medications and IVs Current Medications Magnesium Citrate (Citroma Liq) 300 ml ONCE ONCE PO Last administered on 07:56; Start 09/09/16 at 06:15; Stop 09/09/16 at 06:17; Status DC Ondansetron HCl (Zofran Odt) 4 mg ONCE ONCE PO ; Start 09/09/16 at 06:15; Stop 09/09/16 at 06:20; Status DC Dicyclomine HCl (Bentyl) 20 mg ONCE ONCE PO Last administered on 09/09/16 06: 26; Start 09/09/16 at 06:15; Stop 09/09/16 at 06:17; Status DC Methylnaltrexone [place] (Relistor Inj) 12 mg ONCE ONCE SQ Last administered on 09/09/16 07:56; Start 09/09/16 at 06:15; Stop 09/09/16 at 06:17; Status DC Metoclopramide HCl (Reglan) 10 mg ONCE ONCE PO Last administered on 09/09/16 06:26; Start 09/09/16 at 06:30; Stop 09/09/16 at 06:31; Status DC Metoclopramide HCl (Reglan) 10 mg ONCE ONCE PO ; Start 09/09/16 at 06:30; Stop 09/09/16 at 06:31; Status DC Sodium Chloride (NS Flush) 2 ml UNSCH PRN IV FLUSH FLUSH AFTER USING IV ACCESS ; Start 09/09/16 at 08:15 Iohexol 85 ml 85 ml STK-MED ONCE IV Last administered on 09/09/16 09:14; Start 09/09/16 at 09:14; Stop 09/09/16 at 09:15; Status DC Levofloxacin/ Dextrose 100 ml @ 100 mls/hr Q24H IV Last administered on 11:24; Start 09/09/16 at 12:00 Metronidazole (Flagyl 500 Mg Inj) 100 ml @ 100 mls/hr Q8H IV Last administered on 09/10/16 05:47; Start 09/09/16 at 14:00 Enalaprilat (Vasotec Inj) 1.25 mg Q8H PRN IV PUSH SBP> OR = 180, DBP> OR = 100 ; Start 09/09/16 at 10:45 Hydromorphone HCl 0.5 mg 0.5 mg Q4H PRN IV PUSH PAIN Last administered on 07:33; Start 09/09/16 at 10:45 Sodium Chloride (NS 1000 ml Inj) 1,000 ml @ 100 mls/hr Q10H IV Last administered on 09/10/16 05:47; Start 09/09/16 at 10:45 Ondansetron HCl (Zofran Inj) 4 mg Q8HR PRN IV PUSH NAUSEA; Start 09/09/16 at 10 :45 Methylnaltrexone [place] (Relistor Inj) 12 mg ONCE ONCE SQ ; Start 09/09/16 at 12:45; Stop 09/09/16 at 12:46; Status UNV Hydromorphone HCl (Dilaudid Pf Inj) 0.2 mg NOW ONCE IV Last administered on 16:21; Start 09/09/16 at 16:15; Stop 09/09/16 at 16:16; Status DC A/P Assessment and Plan A/P - diverticulitis vs Colitis on liquid diet - continue IV fluid and antibiotics- antiemetics as needed. continue with pain control. GI consult appreciated. -CAD/hypertension;resume BB and amlodipine- continue to monitor BP -chronic back pain; continue with pain control -DVT prophylaxis with SCD's Jaden Urrutia MD Sep 10, 2016 08:03
[2016-09-10] MEDS: amLODIPine BESYLATE 5 MG TAB PO SCH (08:45)
[2016-09-10] MEDS: METOPROLOL SUCCINATE 50 MG EXTENDED RELEASE TAB PO SCH (08:46)
[2016-09-10] MEDS: LEVOFLOXACIN 500 MG PREMIX INJ 100 ML IV SCH (11:07)
[2016-09-10 11:51] VITALS: BP 162/100; PULSE 79; RESP 18; TEMP 99.2; O2SAT 100
--- NOTE | 2016-09-10 14:54 | HHI.GIFU ---
Subjective Remarks Lying in bed in no apparent distress. Continues to have LLQ abdominal tenderness , intermittent, occurs with bowel movement. States he has had at least 6 BM today, loose. On clear liquid diet, tolerating well. Requesting to advance diet. (April Zamora) Objective Vitals I&O Vital Signs Date Time Temp Pulse Resp B/P Pulse Ox O2 Delivery O2 Flow Rate FiO2 09/10/16 11:51 99.2 79 18 162/100 100 09/10/16 08:00 99.3 89 18 142/100 97 09/10/16 00:00 98.7 95 18 166/93 96 09/09/16 20:00 99.8 97 18 168/93 95 09/09/16 16:53 98.1 98 14 159/83 99 09/09/16 15:40 20 I/O 09/09/16 09/09/16 09/09/16 09/10/16 09/10/16 09/10/16 07:00 15:00 23:00 07:00 15:00 23:00 Intake Total 100 ml 1200 ml 330 ml Output Total 0 ml Balance 100 ml 1200 ml 330 ml Intake Oral 0 ml 330 ml IV Total 100 ml 1200 ml Output Urine Total 0 ml # Voids 2 4 # Bowel Movements 1 4 Laboratory Laboratory Tests Test 09/09/16 09/09/16 08:19 08:35 White Blood Count 8.9 TH/MM3 Red Blood Count 3.92 MIL/MM3 Hemoglobin 13.8 GM/DL Hematocrit 39.8 % Mean Corpuscular Volume 101.7 FL Mean Corpuscular Hemoglobin 35.3 PG Mean Corpuscular Hemoglobin 34.7 % Concent Red Cell Distribution Width 14.1 % Platelet Count 287 TH/MM3 Mean Platelet Volume 6.8 FL Neutrophils (%) (Auto) 76.4 % Lymphocytes (%) (Auto) 7.2 % Monocytes (%) (Auto) 15.6 % Eosinophils (%) (Auto) 0.2 % Basophils (%) (Auto) 0.6 % Neutrophils # (Auto) 6.8 TH/MM3 Lymphocytes # (Auto) 0.6 TH/MM3 Monocytes # (Auto) 1.4 TH/MM3 Eosinophils # (Auto) 0.0 TH/MM3 Basophils # (Auto) 0.1 TH/MM3 CBC Comment DIFF FINAL Differential Comment Sodium Level 138 MEQ/L Potassium Level 3.4 MEQ/L Chloride Level 100 MEQ/L Carbon Dioxide Level 30.5 MEQ/L Anion Gap 8 MEQ/L Blood Urea Nitrogen 8 MG/DL Creatinine 0.95 MG/DL Estimat Glomerular Filtration 80 ML/MIN Rate Random Glucose 119 MG/DL Calcium Level 8.3 MG/DL Total Bilirubin 1.0 MG/DL Aspartate Amino Transf 39 U/L (AST/SGOT) Alanine Aminotransferase 30 U/L (ALT/SGPT) Alkaline Phosphatase 86 U/L Total Protein 6.8 GM/DL Albumin 3.6 GM/DL Urine Collection Type VOIDED Urine Color YELLOW Urine Turbidity CLEAR Urine pH 6.0 Urine Specific [place] 1.017 Urine Protein TRACE mg/dL Urine Glucose (UA) NEG mg/dL Urine Ketones NEG mg/dL Urine Occult Blood TRACE Urine Nitrite NEG Urine Bilirubin NEG Urine Leukocyte Esterase NEG Urine WBC 0-2 /hpf Urine Squamous Epithelial 0-2 /hpf Cells Microscopic Urinalysis Comment CULT NOT INDICATED Imaging Last Impressions Abdomen/Pelvis CT 09/09/16 0808 Signed Impressions: Service Date/Time: Friday, September 09, 2016 08:57 - CONCLUSION: 1. Colitis involving the distal descending colon and proximal sigmoid colon with likely functional mild partial colonic obstruction. There are scattered diverticula in this region. Moderate stool in the sigmoid colon is likely chronic. Differential considerations include developing infectious colitis versus diverticulitis. No evidence for perforation or abscess formation at this time. 2. Redemonstration of bilateral small 2-5 mm calyceal calcified renal calculi without evidence for obstructive uropathy. 3. Additional findings include redemonstration of bilateral renal cysts and mild hepatic steatosis. Cy Wheat MD Abdomen X-Ray 09/09/16 0000 Signed Impressions: Service Date/Time: Friday, September 09, 2016 06:31 - CONCLUSION: 1. Multiple air-fluid levels throughout the small bowel and colon with mild gaseous distention of the small bowel. This is an abnormal finding but the pattern is not suggestive of obstruction. This could represent ileus. Suggest followup to confirm resolution. 2. Multiple densities overlie the kidneys bilaterally and likely represent renal stones. Kishore Arboleda MD Physical Exam HEENT: PERRLA. Anicteric sclera. NECK: Neck is supple, no JVD, no lymphadenopathy. CHEST: CTA CARDIAC: RRR ABDOMEN: Soft, nondistended, TTP at LLQ, bowel sounds x 4 quadrants EXTREMITIES: No clubbing, cyanosis, or edema. SKIN: Normal; no rash; no jaundice. ACCOUNTING ADMINISTRATOR: No focal deficits; alert and oriented times three. (April Zamora) Assessment and Plan Plan ASSESSMENT Diverticulitis, improving. Abdomen/Pelvis CT 09/09/16-- 1. Colitis involving the distal descending colon and proximal sigmoid colon with likely functional mild partial colonic obstruction. There are scattered diverticula in this region. Moderate stool in the sigmoid colon is likely chronic. Differential considerations include developing infectious colitis versus diverticulitis. No evidence for perforation or abscess formation at this time. 2. Redemonstration of bilateral small 2-5 mm calyceal calcified renal calculi without evidence for obstructive uropathy. 3. Additional findings include redemonstration of bilateral renal cysts and mild hepatic steatosis. Continues to have LLQ abdominal tenderness. On IV antibiotics, clear liquid diet. Had 6 BM today. WBC 8.9. PLAN - Okay to discharge from GI standpoint - Followup as outpatient for colonoscopy - Symptomatic management - Advance diet as tolerated Patient seen and examined by Dr. Leggett and myself and this note is written on his behalf. (April Zamora) Physician Comments patient was seen and examined, agree with above note, ok to DC patient home from GI stand, FU as outpatient in few wks (Amada Leggett MD) April Zamora Sep 10, 2016 14:54 Amada Leggett MD Sep 10, 2016 16:56
[2016-09-10 16:00] VITALS: BP 150/90; PULSE 80; RESP 18; TEMP 98.4; O2SAT 99
[2016-09-10 20:00] VITALS: BP 180/109; PULSE 75; RESP 18; TEMP 98.2; O2SAT 97
[2016-09-11] VITALS: BP 162/109; PULSE 76; RESP 16; TEMP 97.7; O2SAT 99
[2016-09-11] MEDS: SODIUM CHLOR 0.9% 1000 ML INJ 1,000 ML IV SCH ×2 (02:09→12:45)
[2016-09-11 04:00] VITALS: BP 151/103; PULSE 74; RESP 16; TEMP 97.8; O2SAT 98
[2016-09-11] MEDS: metroNIDAZOLE 500 MG INJ 100 ML IV SCH (05:18)
[2016-09-11 06:43] LABS: POTASSIUM 3.7 MEQ/L (3.5-5.1)
[2016-09-11 06:46] LABS: BICARBONATE 27.6 MEQ/L (21.0-32.0)
[2016-09-11 07:59] VITALS: BP 140/80; PULSE 78; RESP 16; TEMP 99.4; O2SAT 99
[2016-09-11] MEDS: METOPROLOL SUCCINATE 50 MG EXTENDED RELEASE TAB PO SCH (08:08)
[2016-09-11] MEDS: amLODIPine BESYLATE 5 MG TAB PO SCH (08:08)
--- NOTE | 2016-09-11 08:39 | HHI.PR ---
Subjective Remarks in no acute distress. abdominal pain has much improved. no nausea, vomiting. afebrile. wants to go home. Objective Vitals Vital Signs Date Time Temp Pulse Resp B/P Pulse Ox O2 Delivery O2 Flow Rate FiO2 09/11/16 07:59 99.4 78 16 140/80 99 09/11/16 04:00 97.8 74 16 151/103 98 09/11/16 00:00 97.7 76 16 162/109 99 09/10/16 20:00 98.2 75 18 180/109 97 09/10/16 16:00 98.4 80 18 150/90 99 09/10/16 11:51 99.2 79 18 162/100 100 I/O 09/10/16 09/10/16 09/10/16 09/11/16 09/11/16 09/11/16 06:59 14:59 22:59 06:59 14:59 22:59 Intake Total 1200 ml 330 ml 400 ml 840 ml Balance 1200 ml 330 ml 400 ml 840 ml Intake Oral 330 ml 840 ml IV Total 1200 ml 400 ml # Voids 2 4 3 # Bowel Movements 1 4 0 Result Diagram: 09/09/16 0819 09/11/16 0610 Imaging Last Impressions Abdomen/Pelvis CT 09/09/16 0808 Signed Impressions: Service Date/Time: Friday, September 09, 2016 08:57 - CONCLUSION: 1. Colitis involving the distal descending colon and proximal sigmoid colon with likely functional mild partial colonic obstruction. There are scattered diverticula in this region. Moderate stool in the sigmoid colon is likely chronic. Differential considerations include developing infectious colitis versus diverticulitis. No evidence for perforation or abscess formation at this time. 2. Redemonstration of bilateral small 2-5 mm calyceal calcified renal calculi without evidence for obstructive uropathy. 3. Additional findings include redemonstration of bilateral renal cysts and mild hepatic steatosis. Cy Wheat MD Abdomen X-Ray 09/09/16 0000 Signed Impressions: Service Date/Time: Friday, September 09, 2016 06:31 - CONCLUSION: 1. Multiple air-fluid levels throughout the small bowel and colon with mild gaseous distention of the small bowel. This is an abnormal finding but the pattern is not suggestive of obstruction. This could represent ileus. Suggest followup to confirm resolution. 2. Multiple densities overlie the kidneys bilaterally and likely represent renal stones. Kishore Arboleda MD Objective Remarks GENERAL: This is a well-nourished, well-developed patient, in no apparent distress. CARDIOVASCULAR: Regular rate and regular rhythm without murmurs, gallops, or rubs. RESPIRATORY: Clear to auscultation. Breath sounds equal bilaterally. No wheezes , rales, or rhonchi. GASTROINTESTINAL: Abdomen soft, minimal tenderness, nondistended. Normal, active bowel sounds MUSCULOSKELETAL: Extremities without clubbing, cyanosis, or edema. NEURO: Alert & Oriented x4 to person, place, time, situation. Moves all ext x4 Procedures none Medications and IVs Current Medications Magnesium Citrate (Citroma Liq) 300 ml ONCE ONCE PO Last administered on 07:56; Start 09/09/16 at 06:15; Stop 09/09/16 at 06:17; Status DC Ondansetron HCl (Zofran Odt) 4 mg ONCE ONCE PO ; Start 09/09/16 at 06:15; Stop 09/09/16 at 06:20; Status DC Dicyclomine HCl (Bentyl) 20 mg ONCE ONCE PO Last administered on 09/09/16 06: 26; Start 09/09/16 at 06:15; Stop 09/09/16 at 06:17; Status DC Methylnaltrexone Twilight (Relistor Inj) 12 mg ONCE ONCE SQ Last administered on 09/09/16 07:56; Start 09/09/16 at 06:15; Stop 09/09/16 at 06:17; Status DC Metoclopramide HCl (Reglan) 10 mg ONCE ONCE PO Last administered on 09/09/16 06:26; Start 09/09/16 at 06:30; Stop 09/09/16 at 06:31; Status DC Metoclopramide HCl (Reglan) 10 mg ONCE ONCE PO ; Start 09/09/16 at 06:30; Stop 09/09/16 at 06:31; Status DC Sodium Chloride (NS Flush) 2 ml UNSCH PRN IV FLUSH FLUSH AFTER USING IV ACCESS ; Start 09/09/16 at 08:15 Iohexol 85 ml 85 ml STK-MED ONCE IV Last administered on 09/09/16 09:14; Start 09/09/16 at 09:14; Stop 09/09/16 at 09:15; Status DC Levofloxacin/ Dextrose 100 ml @ 100 mls/hr Q24H IV Last administered on 11:07; Start 09/09/16 at 12:00 Metronidazole (Flagyl 500 Mg Inj) 100 ml @ 100 mls/hr Q8H IV Last administered on 09/11/16 05:18; Start 09/09/16 at 14:00 Enalaprilat (Vasotec Inj) 1.25 mg Q8H PRN IV PUSH SBP> OR = 180, DBP> OR = 100 Last administered on 09/10/16 20:34; Start 09/09/16 at 10:45 Hydromorphone HCl 0.5 mg 0.5 mg Q4H PRN IV PUSH BREAKTHROUGH PAIN Last administered on 09/10/16 07:33; Start 09/09/16 at 10:45 Sodium Chloride (NS 1000 ml Inj) 1,000 ml @ 100 mls/hr Q10H IV Last administered on 09/11/16 02:09; Start 09/09/16 at 10:45 Ondansetron HCl (Zofran Inj) 4 mg Q8HR PRN IV PUSH NAUSEA; Start 09/09/16 at 10 :45 Methylnaltrexone Twilight (Relistor Inj) 12 mg ONCE ONCE SQ ; Start 09/09/16 at 12:45; Stop 09/09/16 at 12:46; Status UNV Hydromorphone HCl (Dilaudid Pf Inj) 0.2 mg NOW ONCE IV Last administered on 16:21; Start 09/09/16 at 16:15; Stop 09/09/16 at 16:16; Status DC Amlodipine Besylate (Norvasc) 5 mg DAILY PO Last administered on 09/11/16 08: 08; Start 09/10/16 at 09:00 Metoprolol Succinate (Toprol Xl) 100 mg DAILY PO Last administered on 08:08; Start 09/10/16 at 09:00 Oxycodone HCl (Roxicodone) 15 mg Q6H PRN PO PAIN Last administered on 08:09; Start 09/10/16 at 08:00 A/P Assessment and Plan A/P - diverticulitis vs Colitis- improved advance the diet - switch to po antibiotics- antiemetics as needed. continue with pain control. GI follow-up appreciated and cleared for discharge. -CAD/hypertension;resume BB and amlodipine- continue to monitor BP -chronic back pain; continue with pain control -DVT prophylaxis with SCD's Discharge Planning dc home today with f/u with pcp and GI. see med list. d/w the patient. Jaden Urrutia MD Sep 11, 2016 08:39
[2016-09-11] MEDS ORDERED: CIPR-9 PO (08:40)
[2016-09-11] MEDS ORDERED: METR-1 PO (08:40)
--- NOTE | 2016-09-11 08:41 | HHI.DCPOC ---
Discharge Care Plan Diagnosis: (1) Diverticulitis Your Health Problems Are: Inflammation Additional Problems abdominal pain. Goals to Promote Your Health * To prevent worsening of your condition and complications * To maintain your health at the optimal level Directions to Meet Your Goals Take your medications as prescribed Follow your dietary instruction Follow activity as directed Keep your appointments as scheduled Take your immunizations and boosters as scheduled If your symptoms worsen call your PCP, if no PCP go to Urgent Care Center or Emergency Room Smoking is Dangerous to Your Health. Avoid second hand smoke Call the 24-hour hour crisis hotline for domestic abuse at Jaden Urrutia MD Sep 11, 2016 08:41
--- NOTE | 2016-09-11 08:41 | HHI.DS ---
Discharge Summary Admission Date Sep 09, 2016 at 10:26 Discharge Date: Sep 11, 2016 Admitting Diagnosis ileus/diverticulitis (1) Diverticulitis ICD Code: K57.92 Diagnosis: Principal (2) Ileus ICD Code: K56.7 Diagnosis: Principal Procedures none Brief History - From Admission patient is a 61 y/o male with history of diverticulitis who presented to ER with abdominal pain. he says that he hasn't had any bowel movement since last week. he then started to have abdominal pain. pain is localized to LLQ and moderate in intensity. pain is colicky in nature and associated with some nausea and vomiting. no report of fever or chills. he says that he's taking opiates for his chronic back pain. CBC/BMP: 09/09/16 0819 09/11/16 0610 Significant Findings Laboratory Tests Test 09/09/16 09/09/16 09/11/16 08:19 08:35 06:10 Red Blood Count 3.92 MIL/MM3 (4.50-5.90) Mean Corpuscular Volume 101.7 FL (80.0-100.0) Mean Corpuscular Hemoglobin 35.3 PG (27.0-34.0) Mean Platelet Volume 6.8 FL (7.0-11.0) Neutrophils (%) (Auto) 76.4 % (16.0-70.0) Lymphocytes (%) (Auto) 7.2 % (9.0-44.0) Monocytes (%) (Auto) 15.6 % (0.0-8.0) Lymphocytes # (Auto) 0.6 TH/MM3 (1.0-4.8) Monocytes # (Auto) 1.4 TH/MM3 (0-0.9) Potassium Level 3.4 MEQ/L (3.5-5.1) Estimat Glomerular Filtration 80 ML/MIN (>89) Rate Random Glucose 119 MG/DL (74-106) Calcium Level 8.3 MG/DL 8.3 MG/DL (8.5-10.1) (8.5-10.1) Aspartate Amino Transf 39 U/L (15-37) (AST/SGOT) Urine Occult Blood TRACE (NEG) Blood Urea Nitrogen 4 MG/DL (7-18) Imaging Last Impressions Abdomen/Pelvis CT 09/09/16 0808 Signed Impressions: Service Date/Time: Friday, September 09, 2016 08:57 - CONCLUSION: 1. Colitis involving the distal descending colon and proximal sigmoid colon with likely functional mild partial colonic obstruction. There are scattered diverticula in this region. Moderate stool in the sigmoid colon is likely chronic. Differential considerations include developing infectious colitis versus diverticulitis. No evidence for perforation or abscess formation at this time. 2. Redemonstration of bilateral small 2-5 mm calyceal calcified renal calculi without evidence for obstructive uropathy. 3. Additional findings include redemonstration of bilateral renal cysts and mild hepatic steatosis. Cy Wheat MD Abdomen X-Ray 09/09/16 0000 Signed Impressions: Service Date/Time: Friday, September 09, 2016 06:31 - CONCLUSION: 1. Multiple air-fluid levels throughout the small bowel and colon with mild gaseous distention of the small bowel. This is an abnormal finding but the pattern is not suggestive of obstruction. This could represent ileus. Suggest followup to confirm resolution. 2. Multiple densities overlie the kidneys bilaterally and likely represent renal stones. Kishore Arboleda MD PE at Discharge GENERAL: This is a well-nourished, well-developed patient, in no apparent distress. CARDIOVASCULAR: Regular rate and regular rhythm without murmurs, gallops, or rubs. RESPIRATORY: Clear to auscultation. Breath sounds equal bilaterally. No wheezes , rales, or rhonchi. GASTROINTESTINAL: Abdomen soft, minimal tenderness, nondistended. Normal, active bowel sounds MUSCULOSKELETAL: Extremities without clubbing, cyanosis, or edema. NEURO: Alert & Oriented x4 to person, place, time, situation. Moves all ext x4 Hospital Course - diverticulitis vs Colitis- improved advance the diet - switch to po antibiotics- antiemetics as needed. continue with pain control. GI follow-up appreciated and cleared for discharge. -CAD/hypertension;resume BB and amlodipine- continue to monitor BP -chronic back pain; continue with pain control -DVT prophylaxis with SCD's Pt Condition on Discharge: Good Discharge Disposition: Discharge Home Discharge Time: <= 30 minutes Discharge Instructions DIET: Follow Instructions for: Low Fiber Diet Activities you can perform: Regular-No Restrictions Follow up Referrals: Gastroenterology PCP Follow-up New Medications: Ciprofloxacin (Cipro) 500 Mg Tab 500 MG PO BID Infection Days 7 Ref 0 TAB Metronidazole (Flagyl) 500 Mg Tab 500 MG PO TID Infection Days 7 Ref 0 TAB Continued Medications: Amlodipine (Norvasc) 5 Mg Tab 5 MG PO DAILY Blood Pressure Management #30 Ref 0 TAB Aspirin (Aspirin) 325 Mg Tab 325 MG PO DAILY Blood Clot Prevention #30 Ref 0 TAB Atorvastatin (Lipitor) 40 Mg Tab 80 MG PO HS Cholesterol Management #30 Ref 0 TAB Hydrocodone-Acetaminophen (Hydrocodone-Acetaminophen) 10-325 mg Tab 1 TAB PO Q4H PRN PAIN Ref 0 TAB Lisinopril (Prinivil) 20 Mg Tab 20 MG PO HS PRN Blood Pressure Management #30 Ref 0 TAB Magnesium Citrate Liq (Magnesium Citrate Liq) 300 Ml Liq 300 ML PO DIRECTED #1 BOTTLE Melatonin (Bulk) (Melatonin) 1 Pow Pow PO PRN SLEEP Metoprolol Succinate ER 24 HR (Toprol XL) 100 Mg Tab 100 MG PO DAILY #30 Ref 0 TAB Multiple Vitamins W/ Minerals (Multivitamin Adults) 1 Tab 1 TAB PO DAILY Nutritional Supplement Ref 0 TAB Ondansetron (Ondansetron) 8 Mg Tab 8 MG PO TID Nausea/Vomiting Ref 0 TAB Sennosides-Docusate Sodium (Senna S) 8.6-50 Mg Tab PO BID Jaden Urrutia MD Sep 11, 2016 08:41
[2016-09-11 12:00] VITALS: BP 155/79; PULSE 81; RESP 16; TEMP 97.4; O2SAT 98
[2016-09-11] MEDS: LEVOFLOXACIN 500 MG PREMIX INJ 100 ML IV SCH (12:25)
--- NOTE | 2016-09-11 20:49 | HHI.GIFU ---
Subjective Remarks patient was seen and examined feels ok, he wants to go home, had multiple BMs yesterday Objective Vitals I&O Vital Signs Date Time Temp Pulse Resp B/P Pulse Ox O2 Delivery O2 Flow Rate FiO2 09/11/16 12:00 97.4 81 16 155/79 98 09/11/16 07:59 99.4 78 16 140/80 99 09/11/16 04:00 97.8 74 16 151/103 98 09/11/16 00:00 97.7 76 16 162/109 99 I/O 09/10/16 09/10/16 09/10/16 09/11/16 09/11/16 09/11/16 06:59 14:59 22:59 06:59 14:59 22:59 Intake Total 1200 ml 330 ml 400 ml 840 ml Balance 1200 ml 330 ml 400 ml 840 ml Intake Oral 330 ml 840 ml IV Total 1200 ml 400 ml # Voids 2 4 3 # Bowel Movements 1 4 0 Laboratory Laboratory Tests Test 09/11/16 06:10 Sodium Level 140 Potassium Level 3.7 Chloride Level 105 Carbon Dioxide Level 27.6 Anion Gap 7 Blood Urea Nitrogen 4 Creatinine 0.83 Estimat Glomerular Filtration 94 Rate Random Glucose 98 Calcium Level 8.3 Physical Exam HEENT: PERRLA. Anicteric sclera. NECK: Neck is supple, no JVD, no lymphadenopathy. CHEST: CTA CARDIAC: RRR ABDOMEN: Soft, nondistended, TTP at LLQ, bowel sounds x 4 quadrants less abdominal tenderness EXTREMITIES: No clubbing, cyanosis, or edema. SKIN: Normal; no rash; no jaundice. 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 Assessment and Plan Plan ASSESSMENT Diverticulitis, improving. Abdomen/Pelvis CT 09/09/16-- 1. Colitis involving the distal descending colon and proximal sigmoid colon with likely functional mild partial colonic obstruction. There are scattered diverticula in this region. Moderate stool in the sigmoid colon is likely chronic. Differential considerations include developing infectious colitis versus diverticulitis. No evidence for perforation or abscess formation at this time. 2. Redemonstration of bilateral small 2-5 mm calyceal calcified renal calculi without evidence for obstructive uropathy. 3. Additional findings include redemonstration of bilateral renal cysts and mild hepatic steatosis. Continues to have LLQ abdominal tenderness. On IV antibiotics, clear liquid diet. Had 6 BM today. WBC 8.9. 7-21-17 diverticulitis, on Abx wants to go home today, feels better, less abdominal pain PLAN - Okay to discharge from GI standpoint - Followup as outpatient for colonoscopy - Symptomatic management - Advance diet as tolerated Amada Leggett MD Sep 11, 2016 20:49
== END 2016-09-11 14:05 | disposition home or self-care (01) ==
LOC: PHED 05:54 → PHEDA 10:26 → PH3A 12:25
PROVIDERS: ADMIT Internal Medicine; ATTEND Internal Medicine
DX: K57.92 Diverticulitis of intestine, part unspecified, without perforation or abscess without bleeding (principal); K56.7 Ileus, unspecified; K56.60 Unspecified intestinal obstruction; K59.03 Drug induced constipation; N20.0 Calculus of kidney; K76.0 Fatty (change of) liver, not elsewhere classified; N28.1 Cyst of kidney, acquired; I25.10 Atherosclerotic heart disease of native coronary artery without angina pectoris; I10 Essential (primary) hypertension; E78.5 Hyperlipidemia, unspecified; K21.9 Gastro-esophageal reflux disease without esophagitis; I25.2 Old myocardial infarction; M54.9 Dorsalgia, unspecified; G89.29 Other chronic pain; Z95.1 Presence of aortocoronary bypass graft; Z79.899 Other long term (current) drug therapy; Z79.82 Long term (current) use of aspirin; Z87.891 Personal history of nicotine dependence; Z79.891 Long term (current) use of opiate analgesic; Z90.49 Acquired absence of other specified parts of digestive tract
CPT/HCPCS: 74020; 74177; 80048; 80053; 81001; 85025; 96372; 99285; G0378; J1170; J1956; J2212; J7030; Q9967

== ENCOUNTER 2017-05-18 09:32 | Emergency (ER) | payer BC, MEDICARE ==
[~2017-05-18] VITALS: Ht 172.7 cm; Wt 72.8 kg
[~2017-05-18 09:32] MED LIST changes: +ASPI-183 PO; -ASPI325T PO; +CIPR-9 PO; +MAGNSOL2 PO; +MELAPOW2 PO; +METR-1 PO; +ONDA8TAB7 PO; +SENN8.6T8 PO
[2017-05-18 09:34] VITALS: BP 181/86; PULSE 81; RESP 16; TEMP 98.5; O2SAT 98
[2017-05-18] MEDS ORDERED: MELA5 PO (09:53)
[2017-05-18] MEDS ORDERED: OXYC1TAB36 PO (09:53)
[2017-05-18] MEDS ORDERED: MULT-65 PO (09:53)
[2017-05-18] MEDS ORDERED: SODI1TAB PO (09:53)
[2017-05-18] MEDS ORDERED: KETOROLAC TROMETHAMINE 60 MG/2 ML (IM) VIAL IM ONE (10:00)
[2017-05-18] MEDS ORDERED: MELO7.5T27 PO (10:03)
--- NOTE | 2017-05-18 10:03 | PD ---
HPI Chief Complaint: Musculoskeletal Complaint Time Seen by Provider: 09:41 Travel History International Travel<30 days: No Contact w/Intl Traveler<30days: No Traveled to known affect area: No History of Present Illness HPI 62-year-old man who presents to the emergency department complaining of neck pain and paresthesias and tingling on his upper neck and face. He reports a history of chronic back problems. On chronic opiates. He has sciatica right- sided lower extremity paresthesias chronically. He reports over the past weeks to months he has had worsening pain in the neck and tingling in the upper jaw on both sides similar to a sciatica type symptoms. Reports the tingling is in the neck and face on both sides but does not come over the middle. Does not radiate into either the arms. Is worse with certain neck movements. No other complaints. History Past Medical History Narrative Medical CAD, history of CABG, Hypertension Hyperlipidemia Back problems Social History Alcohol Use: Yes (3-4 DRINKS DAILY) Tobacco Use: No Allergies-Medications (Allergen,Severity, Reaction): Coded Allergies: Sulfa (Sulfonamide Antibiotics) (Unverified Allergy, Severe, 05/18/17) Reported Meds & Prescriptions Reported Meds & Active Scripts Active Reported Oxycodone-Acetaminophen 10-325 mg Tab 1 Tab PO Q4HR Sodium Chloride 1 Gram Tab 1 Gm PO DAILY Multi-Vitamin Daily (Multiple Vitamin) 1 Tab Tab 1 Tab PO DAILY Melatonin 5 Mg Tab 5 Mg PO HS Senna S (Sennosides-Docusate Sodium) 8.6-50 Mg Tab 1 Tab PO DIRECTED Norvasc (Amlodipine Besylate) 5 Mg Tab 5 Mg PO DAILY Aspirin 325 Mg Tab 325 Mg PO DAILY Lipitor (Atorvastatin Calcium) 40 Mg Tab 80 Mg PO HS Prinivil (Lisinopril) 20 Mg Tab 20 Mg PO HS Toprol XL (Metoprolol Succinate) 100 Mg Tab 100 Mg PO DAILY Review of Systems Except as stated in HPI: all other systems reviewed are Neg Physical Exam Narrative GENERAL: Well-appearing 62-year-old man, no acute distress. SKIN: Warm and dry. NECK: Normal appearance of the neck. Full range of motion. No tenderness. CARDIOVASCULAR: Warm and well perfused. RESPIRATORY: Normal rate and effort. MUSCULOSKELETAL: Strength full and equal in the upper extremities. No sensory changes. NEUROLOGICAL: Awake and alert. No gross deficits. Data Data Last Documented VS Vital Signs Date Time Temp Pulse Resp B/P (MAP) Pulse Ox O2 Delivery O2 Flow Rate FiO2 05/18/17 09:34 98.5 81 16 181/86 (117) 98 Orders Orders Ketorolac Inj (Toradol Inj) (05/18/17 10:00) Oxycodone (Roxicodone) (05/18/17 10:00) [facility] Medical Decision Making Medical Screen Exam Complete: Yes Emergency Medical Condition: Yes Differential Diagnosis Neck pain, radiculopathy, herniated disc, trauma, other Narrative Course Medical decision making This 61-year-old male presents emergency department complaining of neck pain and tingling. Looks well. Symptoms are clearly related to his neck and positional changes. No evidence of heart disease or other mimics. History of similar problems in the past in the back. Had imaging of his neck recently, plain films, which was reportedly unremarkable. Diagnosis Primary Impression: Neck pain Additional Instructions: Take 2 weeks of meloxicam in addition to her chronic opiate pain medications. Follow-up with Dr. Milton for further evaluation. Return to the emergency department any worsening numbness, tingling, weakness, or any other new or worsening symptoms. Med/Other Pt SpecificInfo: Prescription(s) given Scripts Meloxicam (Meloxicam) 7.5 Mg Tab 7.5 MG PO DAILY for Arthritis Pain for 14 Days, #14 TAB 0 Refills Prov: Clint Ma MD 05/18/17 Disposition: 01 DISCHARGE HOME Condition: Stable Clint Ma MD May 18, 2017 10:03
== END 2017-05-18 11:26 | disposition home or self-care (01) ==
LOC: PHED 09:32
DX: M54.2 Cervicalgia (principal); E78.5 Hyperlipidemia, unspecified; I10 Essential (primary) hypertension; I25.10 Atherosclerotic heart disease of native coronary artery without angina pectoris; R20.2 Paresthesia of skin; Z95.1 Presence of aortocoronary bypass graft; Z79.891 Long term (current) use of opiate analgesic
CPT/HCPCS: 96372; 99284; J1885